=== PATIENT | male | born 1995 | race Two or more races ===

== ENCOUNTER 2020-08-14 07:33 | Emergency (ER) | payer OTHER ==
[~2020-08-14] VITALS: Ht 185.4 cm; Wt 104.3 kg
[2020-08-14] MEDS ORDERED: ADVAIR HFA 115/12 GM IH (07:45)
[2020-08-14] MEDS ORDERED: PROAIR RESPICL90 MCG IH (07:46)
[2020-08-14] MEDS ORDERED: MEDROLPACK PO (14:39)
[2020-08-14] MEDS ORDERED: TUSSI PRES-B L480 ML PO (14:39)
[2020-08-14] MEDS ORDERED: ZITHROMAX500 MG PO (14:39)
== END 2020-08-14 14:49 | disposition home or self-care (01) ==
LOC: ER 07:33
DX: B34.9 Viral infection, unspecified (principal); Z03.818 Encounter for observation for suspected exposure to other biological agents ruled out